=== PATIENT | male | born 1960 | race African-American/Black ===

== ENCOUNTER 2022-05-13 20:27 | Inpatient (IN) | payer MEDICARE, SELFPAY ==
[2022-05-13] MEDS ORDERED: Acetaminophen 325 MG TAB PO PRN (22:50)
[2022-05-13] MEDS ORDERED: Morphine 2 MG/ML VIAL SLOW IVP PRN ×2 (22:59→23:03)
[2022-05-13] MEDS ORDERED: Lactated Ringer's 1,000 ML IV SCH (23:00)
[2022-05-13] MEDS ORDERED: ANTIVENIN,CROTALIDAE (ANAVIP) 10 EACH in Sodium Chloride 0.9% 250 ML 250 ML IVPB SCH (23:45)
[2022-05-14 00:40] VITALS: BMI 39.4
[2022-05-14] MEDS ORDERED: Morphine 2 MG/ML VIAL SLOW IVP SCH (00:45)
[2022-05-14] MEDS ORDERED: Atorvastatin Calcium 40 MG TAB PO SCH (00:45)
[2022-05-14] MEDS: Acetaminophen 325 MG TAB PO SCH ×6 (01:05→20:04)
[2022-05-14] MEDS: Morphine 4 MG/ML VIAL SLOW IVP PRN ×3 (04:45→12:42)
[2022-05-14 04:56] LABS: #Eosinphils 0.1 thou/uL (0.0-0.7); #Lymphocytes 1.1 thou/uL (1.20-3.40); %Basophils 0.1 % (0.0-1.0); %Eosinophils 0.8 % (0.0-10.0); %Monocytes 11.2 % (0.0-10.0); %Neutrophils 75.8 % (42.0-75.0); Hemoglobin 12.9 g/dL (14.0-18.0); Mean Corpuscular HGB CONC 32.6 g/dL (32.0-36.0); Mean Corpuscular Volume 95.1 fl (78.0-98.0); Mean Platelet Volume 9.7 fL (7.4-10.4); Platelet Count 139 10x3/uL (130-400); Red Blood Cell (RBC) Count 4.18 mill/uL (4.70-6.10); White Blood Cell (WBC) Count 9.3 10x3/uL (4.8-10.8)
[2022-05-14 05:12] LABS: PTT 29.6 sec (22.9-36.1); Prothrombin Time 14.1 sec (12.0-14.7)
[2022-05-14 05:21] LABS: Anion Gap 12 mmol/L (10-20); BUN (Urea Nitrogen) 19 mg/dL (8.4-25.7); Calc. Creatinine Clearance 89 mL/min (70-130); Carbon Dioxide 24 mmol/L (23-31); Chloride 110 mmol/L (98-107); Estimated GFR 64; Glucose 101 mg/dL (80-115); Potassium 4.1 mmol/L (3.5-5.1); Sodium 142 mmol/L (136-145)
[2022-05-14] MEDS ORDERED: hydrALAZINE 20 MG/ML VIAL SLOW IVP PRN ×2 (06:06→06:26)
[2022-05-14] MEDS ORDERED: Promethazine HCl 12.5 MG in Sodium Chloride 0.9% 50 ML IVPB PRN (06:52)
[2022-05-14] MEDS: Lisinopril 20 MG TAB PO SCH (08:51)
[2022-05-14] MEDS: Senokot S 8.6-50 MG TAB PO SCH ×2 (08:51→20:06)
[2022-05-14 10:01] LABS: PTT 29.2 sec (22.9-36.1)
[2022-05-14] MEDS ORDERED: Aspirin 81 mg Enteric Coated Tablet PO SCH (12:30)
[2022-05-14] MEDS ORDERED: ANTIVENIN,CROTALIDAE (ANAVIP) 10 EACH in Sodium Chloride 0.9% 250 ML 250 ML IVPB SCH (18:45)
[2022-05-14] MEDS: Atorvastatin Calcium 40 MG TAB PO SCH (20:06)
[2022-05-14 21:48] LABS: PTT 28.3 sec (22.9-36.1)
[2022-05-15] MEDS: Acetaminophen 325 MG TAB PO SCH ×6 (01:44→20:25)
[2022-05-15 04:44] LABS: #Eosinphils 0.3 thou/uL (0.0-0.7); #Lymphocytes 1.4 thou/uL (1.20-3.40); #Neutrophils 4.6 thou/uL (1.40-6.50); %Basophils 0.2 % (0.0-1.0); %Eosinophils 3.9 % (0.0-10.0); %Lymphocytes 18.9 % (21.0-51.0); %Monocytes 13.1 % (0.0-10.0); %Neutrophils 63.9 % (42.0-75.0); Hemoglobin 13.1 g/dL (14.0-18.0); Mean Corpuscular HGB CONC 32.4 g/dL (32.0-36.0); Mean Corpuscular Hemoglobin 31.1 pg (27.0-31.0); Mean Corpuscular Volume 96.3 fl (78.0-98.0); Mean Platelet Volume 10.1 fL (7.4-10.4); Platelet Count 141 10x3/uL (130-400); RBC Distribution Width 14.1 % (11.5-14.5); Red Blood Cell (RBC) Count 4.22 mill/uL (4.70-6.10); White Blood Cell (WBC) Count 7.3 10x3/uL (4.8-10.8)
[2022-05-15 05:08] LABS: Anion Gap 6 mmol/L (10-20); BUN (Urea Nitrogen) 14 mg/dL (8.4-25.7); Calc. Creatinine Clearance 98 mL/min (70-130); Calcium 9.2 mg/dL (7.8-10.44); Carbon Dioxide 30 mmol/L (23-31); Chloride 106 mmol/L (98-107); Estimated GFR 72; Glucose 117 mg/dL (80-115); Potassium 4.2 mmol/L (3.5-5.1); Sodium 138 mmol/L (136-145)
[2022-05-15] MEDS: Senokot S 8.6-50 MG TAB PO SCH (09:28)
[2022-05-15] MEDS: Lisinopril 20 MG TAB PO SCH (09:29)
[2022-05-15] MEDS: Aspirin 81 mg Enteric Coated Tablet PO SCH (09:29)
[2022-05-15] MEDS: TICAGRELOR 90 MG TABLET PO SCH ×2 (09:30→20:26)
[2022-05-15] MEDS ORDERED: Morphine 4 MG/ML VIAL SLOW IVP PRN (09:53)
[2022-05-15] MEDS ORDERED: Morphine 2 MG/ML VIAL SLOW IVP PRN (09:53)
[2022-05-15] MEDS ORDERED: Polyethylene Glycol 3350 17 GM Packet PO SCH (10:00)
[2022-05-15] MEDS: Atorvastatin Calcium 40 MG TAB PO SCH (20:26)
[2022-05-16] MEDS: Acetaminophen 325 MG TAB PO SCH ×4 (01:53→12:48)
[2022-05-16 05:16] LABS: #Eosinphils 0.3 thou/uL (0.0-0.7); #Lymphocytes 1.2 thou/uL (1.20-3.40); #Monocytes 0.8 thou/uL (0.11-0.59); #Neutrophils 4.2 thou/uL (1.40-6.50); %Basophils 0.2 % (0.0-1.0); %Eosinophils 3.9 % (0.0-10.0); %Lymphocytes 18.9 % (21.0-51.0); %Monocytes 11.8 % (0.0-10.0); %Neutrophils 65.2 % (42.0-75.0); Hemoglobin 12.5 g/dL (14.0-18.0); Mean Corpuscular HGB CONC 32.4 g/dL (32.0-36.0); Mean Corpuscular Hemoglobin 30.9 pg (27.0-31.0); Mean Corpuscular Volume 95.3 fl (78.0-98.0); Platelet Count 129 10x3/uL (130-400); RBC Distribution Width 13.9 % (11.5-14.5); Red Blood Cell (RBC) Count 4.03 mill/uL (4.70-6.10); White Blood Cell (WBC) Count 6.4 10x3/uL (4.8-10.8)
[2022-05-16 05:29] LABS: PTT 29.2 sec (22.9-36.1); Prothrombin Time 13.7 sec (12.0-14.7)
[2022-05-16 05:38] LABS: Anion Gap 10 mmol/L (10-20); BUN (Urea Nitrogen) 13 mg/dL (8.4-25.7); Calc. Creatinine Clearance 109 mL/min (70-130); Calcium 9.3 mg/dL (7.8-10.44); Carbon Dioxide 26 mmol/L (23-31); Chloride 107 mmol/L (98-107); Estimated GFR 81; Glucose 95 mg/dL (80-115); Potassium 3.7 mmol/L (3.5-5.1); Sodium 139 mmol/L (136-145)
[2022-05-16] MEDS ORDERED: Polyethylene Glycol 3350 17 GM Packet PO SCH (09:00)
[2022-05-16] MEDS: Aspirin 81 mg Enteric Coated Tablet PO SCH (09:08)
[2022-05-16] MEDS: Lisinopril 20 MG TAB PO SCH (09:08)
[2022-05-16] MEDS: TICAGRELOR 90 MG TABLET PO SCH (09:09)
[2022-05-16 12:51] VITALS: BP 134/74; TEMP 98
== END 2022-05-16 13:45 | disposition home or self-care (01) | DRG 918 ==
LOC: 2NO 22:19 → INTOOBSV 22:19 → OBSVTOIN 05-15 14:19
PROVIDERS: ADMIT Family Medicine; ATTEND Family Medicine
PROC: 3E0334Z Introduction of Serum, Toxoid and Vaccine into Peripheral Vein, Percutaneous Approach (ICD-10-PCS; principal; 2022-05-15)
DX: T63.091A Toxic effect of venom of other snake, accidental (unintentional), initial encounter (principal); I25.10 Atherosclerotic heart disease of native coronary artery without angina pectoris; E11.51 Type 2 diabetes mellitus with diabetic peripheral angiopathy without gangrene; E78.5 Hyperlipidemia, unspecified; I48.0 Paroxysmal atrial fibrillation; Z95.5 Presence of coronary angioplasty implant and graft; Z88.8 Allergy status to other drugs, medicaments and biological substances; Z79.82 Long term (current) use of aspirin; Z79.899 Other long term (current) drug therapy
CPT/HCPCS: 36415; 36416; 80048; 82550; 85025; 85610; 85730; 96374; 96375; 96376; G0378; J0841; J2270; J2272; J7050; J7120